=== PATIENT | female | born 1970 | race Native Hawaiian/Other Pacific Islander ===

== ENCOUNTER 2016-10-14 19:19 | Observation (INO) | payer MEDICAID ==
[2016-10-14] MEDS ORDERED: Sodium Chloride 0.9% 1,000 ML IV ONE (19:44)
[2016-10-14] MEDS ORDERED: Sodium Chloride 0.9% 1,000 ML ONE (19:59)
[2016-10-14 20:07] LABS: BASO # 0.1 K/uL (0.0-0.2); BASO % 1.1 % (0.0-2.0); EOS # 0.3 K/uL (0.0-0.7); EOS % 4.1 % (0.0-4.0); HEMATOCRIT 39.8 % (34.0-47.0); LYMPH # 2.1 K/uL (1.0-4.3); LYMPH % 30.4 % (20.0-40.0); MEAN CORPUSCULAR HEMOGLOBIN 27.2 pg (27.0-31.0); MEAN CORPUSCULAR HGB CONC 34.4 g/dL (33.0-37.0); MEAN PLATELET VOLUME 7.4 fL (7.2-11.7); MONO # 0.6 K/uL (0.0-0.8); MONO % 8.1 % (0.0-10.0); NRBC % 0.2 % (0.0-2.0); RED CELL DISTRIBUTION WIDTH 14.9 % (11.5-14.5); WHITE BLOOD COUNT 6.9 K/uL (4.8-10.8)
--- NOTE | 2016-10-14 20:16 | C.PDOC ---
History Of Present Illness 46 y/o female complaining of dizziness for the past 2-3 hours associated with 3- 4 episodes of vomiting today. Denies chest pain, shortness of breath, and abdominal pain. She states having similar symptoms in the past and saw an ENT who did a procedure in the office where she felt better afterward. No change in vision. No further medical complaints. PMD: Jessica Connors Time Seen by Provider: 10/14/16 19:35 Chief Complaint (Nursing): Dizziness/Lightheaded History Per: Patient History/Exam Limitations: no limitations Onset/Duration Of Symptoms: Hrs (2-3 hours ago) Current Symptoms Are (Timing): Still Present Past Medical History Reviewed: Historical Data, Nursing Documentation, Vital Signs Vital Signs: Last Vital Signs Temp 97.6 F 10/15/16 00:46 Pulse 65 10/15/16 00:46 Resp 20 10/15/16 01:02 BP 109/76 10/15/16 00:46 Pulse Ox 98 10/14/16 22:17 Family History: States: No Known Family Hx - Social History Hx Alcohol Use: No Hx Substance Use: No Review Of Systems Except As Marked, All Systems Reviewed And Found Negative. Eyes: Negative for: Vision Change Cardiovascular: Negative for: Chest Pain Respiratory: Negative for: Shortness of Breath Gastrointestinal: Positive for: Vomiting. Negative for: Abdominal Pain Neurological: Positive for: Dizziness Physical Exam - Physical Exam Appears: Well, Non-toxic, No Acute Distress Skin: Normal Color, Warm, Dry Head: Atraumatic, Normacephalic Eye(s): bilateral: Normal Inspection, PERRL, EOMI Oral Mucosa: Moist Neck: Normal, Normal ROM, Supple Chest: Symmetrical Cardiovascular: Rhythm Regular, No Murmur Respiratory: Normal Breath Sounds, No Accessory Muscle Use Gastrointestinal/Abdominal: Normal Exam, Bowel Sounds, Soft, No Tenderness Back: Normal Inspection, No Vertebral Tenderness Extremity: Bilateral: Atraumatic, Normal Color And Temperature, Normal ROM Neurological/Psych: Oriented x3, Normal Speech, Normal Motor, Normal Sensation Gait: Steady ED Course And Treatment - Laboratory Results Result Diagrams: 10/14/16 20:01 10/14/16 20:01 O2 Sat by Pulse Oximetry: 98 (RA) Pulse Ox Interpretation: Normal - CT Scan/US CT Head Without Intravenous Contrast Other Rad Studies (CT/US): Read By Radiologist, Radiology Report Reviewed CT/US Interpretation: FINDINGS: Brain: No hemorrhage. No significant white matter disease. No edema. Appearance of partially. empty sella. Ventricles: No hydrocephalus. Bones: Skull is intact. Sinuses: No acute sinusitis. Mastoid air cells: No mastoid effusion. IMPRESSION: No CT evidence of acute intracranial abnormality. Appearance of partially empty sella. Correlate clinically. Followup as warranted. Medical Decision Making Medical Decision Making: Time: 19:36 Plan: --CMP --Lipase --CBC --POC urine --sodium chloride IV 1000 ml at 250 mls/hr --Pepcid 20 mg IV --Antivert 25 mg PO --Reglan 10 mg IV --Reevaluation and disposition Disposition - Disposition Disposition: HOSPITALIZED Disposition Time: 22:20 Condition: STABLE - Clinical Impression Clinical Impression: Vertigo, Vomiting - Scribe Statement The provider has reviewed the documentation as recorded by the Charisse Garcia All medical record entries made by the Yadiibe were at my direction and personally dictated by me. I have reviewed the chart and agree that the record accurately reflects my personal performance of the history, physical exam, medical decision making, and the department course for this patient. I have also personally directed, reviewed, and agree with the discharge instructions and disposition.
[2016-10-14 20:17] LABS: CHLORIDE 101 mmol/L (98-107); POTASSIUM 4.4 mmol/L (3.6-5.2); SODIUM 141 mmol/L (132-148)
[2016-10-14 20:19] LABS: GFR AFRICAN-AMERICAN > 60
[2016-10-14 20:20] LABS: ALB/GLOB RATIO 1.4 (1.0-2.1); ALKALINE PHOSPHATASE 89 U/L (38-126); ALT/SGPT 34 U/L (9-52); AST/SGOT 20 U/L (14-36); BILIRUBIN,TOTAL 0.6 mg/dL (0.2-1.3); BLOOD UREA NITROGEN 17 mg/dL (7-17); CALCIUM 9.2 mg/dl (8.6-10.4); CARBON DIOXIDE 26 mmol/L (22-30); GLUCOSE,RANDOM 96 mg/dL (65-105); TOTAL PROTEIN 6.8 g/dL (6.3-8.3)
--- NOTE | 2016-10-14 22:08 | CT ---
EXAM: CT Head Without Intravenous Contrast CLINICAL HISTORY: 46 years old, female; Pain; Headache; Additional info: R/O ich TECHNIQUE: Axial computed tomography images of the head/brain without intravenous contrast. All CT scans at this facility use one or more dose reduction techniques, viz.: automated exposure control; ma/kV adjustment per patient size (including targeted exams where dose is matched to indication; i.e. head); or iterative reconstruction technique. Coronal and sagittal reformatted images were created and reviewed. COMPARISON: No relevant prior studies available. FINDINGS: Brain: No hemorrhage. No significant white matter disease. No edema. Appearance of partially empty sella. Ventricles: No hydrocephalus. Bones: Skull is intact. Sinuses: No acute sinusitis. Mastoid air cells: No mastoid effusion. IMPRESSION: No CT evidence of acute intracranial abnormality. Appearance of partially empty sella. Correlate clinically. Followup as warranted.
[2016-10-15 07:46] LABS: HEMATOCRIT 41.5 % (34.0-47.0); MEAN CELL VOLUME 79.6 fL (81.0-99.0); MEAN CORPUSCULAR HEMOGLOBIN 26.6 pg (27.0-31.0); MEAN CORPUSCULAR HGB CONC 33.4 g/dL (33.0-37.0); MEAN PLATELET VOLUME 7.8 fL (7.2-11.7); RED CELL DISTRIBUTION WIDTH 14.4 % (11.5-14.5); WHITE BLOOD COUNT 6.7 K/uL (4.8-10.8)
[2016-10-15 07:58] LABS: CHLORIDE 103 mmol/L (98-107); SODIUM 137 mmol/L (132-148)
[2016-10-15 07:59] LABS: POTASSIUM 3.8 mmol/L (3.6-5.2)
[2016-10-15 08:01] LABS: CARBON DIOXIDE 25 mmol/L (22-30); GFR AFRICAN-AMERICAN > 60
[2016-10-15 08:02] LABS: BLOOD UREA NITROGEN 12 mg/dL (7-17); CALCIUM 8.8 mg/dl (8.6-10.4); GLUCOSE,RANDOM 89 mg/dL (65-105)
--- NOTE | 2016-10-15 23:47 | CP.PCM.HP ---
History of Present Illness - History of Present Illness History of Present Illness: 46 WITH H/O BPV IN THE PAST, SHE HAS NAUSEA, WEAKNESS DIZZINESS, WHICH SHE DESCRIBES VERTO, NO CHEST PAIN, NO SEIZURE, NO LOC Present on Admission - Present on Admission Any Indicators Present on Admission: No History of DVT/PE: No History of Uncontrolled Diabetes: No Urinary Catheter: No Decubitus Ulcer Present: No Review of Systems - Constitutional Constitutional: Anorexia, Headache - EENT Nose/Mouth/Throat: Nasal Congestion - Gastrointestinal Gastrointestinal: Nausea, Vomiting - Musculoskeletal Musculoskeletal: Arthralgias - Neurological Neurological: Dizziness Past Patient History - Past Medical History & Family History Past Medical History?: Yes - Past Social History Smoking Status: Never Smoked - CARDIAC Hx Cardiac Disorders: No - PULMONARY Hx Respiratory Disorders: No - NEUROLOGICAL Hx Neurological Disorder: Yes Hx Dizziness: Yes - HEENT Hx HEENT Problems: No - RENAL Hx Chronic Kidney Disease: No - ENDOCRINE/METABOLIC Hx Endocrine Disorders: No - HEMATOLOGICAL/ONCOLOGICAL Hx Blood Disorders: No - INTEGUMENTARY Hx Dermatological Problems: No - MUSCULOSKELETAL/RHEUMATOLOGICAL Hx Musculoskeletal Disorders: No Hx Falls: No - GASTROINTESTINAL Hx Vomiting: Yes - GENITOURINARY/GYNECOLOGICAL Hx Genitourinary Disorders: No - PSYCHIATRIC Hx Substance Use: No - SURGICAL HISTORY Hx Surgeries: Yes Other/Comment: dental procedure - ANESTHESIA Hx Anesthesia: Yes Hx Anesthesia Reactions: No Meds Allergies/Adverse Reactions: Allergies Allergy/AdvReac Type Severity Reaction Status Date / Time No Known Allergies Allergy Verified 10/14/16 19:27 Physical Exam - Head Exam Head Exam: ATRAUMATIC, NORMAL INSPECTION, NORMOCEPHALIC - Eye Exam Eye Exam: EOMI, Normal appearance, PERRL - ENT Exam ENT Exam: Mucous Membranes Moist, Normal Exam, Normal Oropharynx - Neck Exam Neck exam: Positive for: Normal Inspection - Respiratory Exam Respiratory Exam: Clear to Auscultation Bilateral, NORMAL BREATHING PATTERN - Cardiovascular Exam Cardiovascular Exam: REGULAR RHYTHM, +S1, +S2 - GI/Abdominal Exam GI & Abdominal Exam: Normal Bowel Sounds - Rectal Exam Rectal Exam: NORMAL INSPECTION - Neurological Exam Neurological exam: Alert, CN II-XII Intact, Normal Gait, Oriented x3, Reflexes Normal - Psychiatric Exam Psychiatric exam: Normal Mood - Skin Skin Exam: Dry, Normal Color Results - Vital Signs Recent Vital Signs: Last Vital Signs Temp 98 F 10/15/16 16:00 Pulse 20 L 10/15/16 16:00 Resp 20 10/15/16 16:00 BP 103/69 10/15/16 16:00 Pulse Ox 96 10/15/16 16:00 - Labs Result Diagrams: 10/15/16 07:28 10/15/16 07:28 Labs: Laboratory Results - last 24 hr 10/15/16 10/15/16 07:28 07:28 WBC 6.7 RBC 5.21 H Hgb 13.9 Hct 41.5 MCV 79.6 L MCH 26.6 L MCHC 33.4 RDW 14.4 Plt Count 266 MPV 7.8 Sodium 137 Potassium 3.8 Chloride 103 Carbon Dioxide 25 Anion Gap 13 BUN 12 Creatinine 0.7 Est GFR ( Amer) > 60 Est GFR (Non-Af Amer) > 60 Random Glucose 89 Calcium 8.8 Assessment & Plan (1) Vertigo Status: Acute
[2016-10-16 08:36] VITALS: RESP 20
[2016-10-16] MEDS ORDERED: Gadodiamide 287 MG/ML VIAL (15ML) IV ONE (11:29)
--- NOTE | 2016-10-16 12:26 | MRI ---
PROCEDURE: MRI BRAIN WITH AND WITHOUT CONTRAST HISTORY: Dizziness COMPARISON: Comparison made with CT brain 10/14/2016 TECHNIQUE: Multiplanar, multisequence MR images of the brain were obtained with and without intravenous contrast enhancement. Approximately 15 cc of Omniscan contrast material injected for this procedure FINDINGS: HEMORRHAGE: No acute parenchymal, subarachnoid nor extra-axial hemorrhage. . No evidence of hemosiderin deposition identified on gradient echo weighted sequence. DWI: No evidence of an acute or early subacute infarction seen on diffusion imaging. . BRAIN PARENCHYMA: No mass,mass effect or edema. No atrophy or chronic microvascular ischemic changes. Ventricular and sulcal size are within range of normal for this patient's stated age Partially empty sella. ENHANCEMENT: No enhancing parenchymal nor extra-axial masses or collections. No evidence of unusual meningeal enhancement. . . . Pulsation artifact felt be present within the posterior fossa as well as extending superiorly into the posterior temporoparietal watershed zones. VENTRICLES: No obstructive hydrocephalus CRANIUM: Calvarium appears grossly unremarkable. ORBITS: Grossly unremarkable. PARANASAL SINUSES/MASTOIDS: Minimal mucosal thickening seen within a few ethmoid air cells. VASCULAR SYSTEM: The visualized major vascular flow voids at skull base patent. OTHER FINDINGS: None . IMPRESSION: No evidence of acute intracranial hemorrhage or infarct. No enhancing lesions seen. Apparent pulsation type artifact within the posterior fossa and posterior temporoparietal watershed zones protocol of evelio
[2016-10-16 17:20] VITALS: BP 125/80; PULSE 81; TEMP 97.4; O2SAT 100
[2016-10-16] MEDS ORDERED: Pneumococcal 23-Valent Vaccine IM ONE (17:30)
--- NOTE | 2016-10-16 19:35 | CP.PCM.DIS ---
Provider - Provider Date of Admission: 10/14/16 22:31 Attending physician: Cory Rangel MD Diagnosis - Discharge Diagnosis (1) Vertigo Status: Acute Hospital Course - Lab Results Lab Results: Most Recent Lab Values WBC 6.7 K/uL (4.8-10.8) 10/15/16 07: RBC 5.21 Mil/uL (3.80-5.20) H 10/15/16 07:28 Hgb 13.9 g/dL (11.0-16.0) 10/15/16 07: Hct 41.5 % (34.0-47.0) 10/15/16 07: MCV 79.6 fL (81.0-99.0) L 10/15/16 07: MCH 26.6 pg (27.0-31.0) L 10/15/16 07: MCHC 33.4 g/dL (33.0-37.0) 10/15/16 07: RDW 14.4 % (11.5-14.5) 10/15/16 07: Plt Count 266 K/uL (130-400) 10/15/16 07:28 MPV 7.8 fL (7.2-11.7) 10/15/16 07: Neut % (Auto) 56.3 % (50.0-75.0) 10/14/16 20:01 Lymph % (Auto) 30.4 % (20.0-40.0) 10/14/16 20:01 [place] % (Auto) 8.1 % (0.0-10.0) 10/14/16 20:01 Eos % (Auto) 4.1 % (0.0-4.0) H 10/14/16 20:01 Baso % (Auto) 1.1 % (0.0-2.0) 10/14/16 20:01 Neut # 3.9 K/uL (1.8-7.0) 10/14/16 20:01 Lymph # 2.1 K/uL (1.0-4.3) 10/14/16 20:01 [place] # 0.6 K/uL (0.0-0.8) 10/14/16 20:01 Eos # 0.3 K/uL (0.0-0.7) 10/14/16 20:01 Baso # 0.1 K/uL (0.0-0.2) 10/14/16 20:01 Sodium 137 mmol/L (132-148) 10/15/16 07:28 Potassium 3.8 mmol/L (3.6-5.2) 10/15/16 07:28 Chloride 103 mmol/L (98-107) 10/15/16 07:28 Carbon Dioxide 25 mmol/L (22-30) 10/15/16 07:28 Anion Gap 13 (10-20) 10/15/16 07:28 BUN 12 mg/dL (7-17) 10/15/16 07:28 Creatinine 0.7 MG/DL (0.7-1.2) 10/15/16 07:28 Est GFR ( Amer) > 60 10/15/16 07:28 Est GFR (Non-Af Amer) > 60 10/15/16 07:28 Random Glucose 89 mg/dL (65-105) 10/15/16 07:28 Calcium 8.8 mg/dl (8.6-10.4) 10/15/16 07:28 Total Bilirubin 0.6 mg/dL (0.2-1.3) 10/14/16 20:01 AST 20 U/L (14-36) 10/14/16 20:01 ALT 34 U/L (9-52) 10/14/16 20:01 Alkaline Phosphatase 89 U/L (38-126) 10/14/16 20:01 Total Protein 6.8 g/dL (6.3-8.3) 10/14/16 20:01 Albumin 3.9 g/dL (3.5-5.0) 10/14/16 20:01 Globulin 2.9 gm/dL (2.2-3.9) 10/14/16 20:01 Albumin/Globulin Ratio 1.4 (1.0-2.1) 10/14/16 20:01 Lipase 104 U/L (23-300) 10/14/16 20:01 Urine HCG, Qual Negative (NEGATIVE) 10/16/16 08:09 - Hospital Course Hospital Course: ADMITTED WITH DIZZINESS AND SHE HAD MRI -. NO SOB AND MRI NEGATIVE Discharge Exam - Head Exam Head Exam: ATRAUMATIC, NORMAL INSPECTION, NORMOCEPHALIC - Eye Exam Eye Exam: EOMI, Normal appearance, PERRL Pupil Exam: NORMAL ACCOMODATION - ENT Exam ENT Exam: Mucous Membranes Moist, Normal Exam, Normal Oropharynx, TM's Normal Bilaterally - Neck Exam Neck exam: Normal Inspection - Respiratory Exam Respiratory Exam: NORMAL BREATHING PATTERN - Cardiovascular Exam Cardiovascular Exam: REGULAR RHYTHM, +S1, +S2 - GI/Abdominal Exam GI & Abdominal Exam: Normal Bowel Sounds - Rectal Exam Rectal Exam: NORMAL INSPECTION - Neurological Exam Neurological exam: Alert, CN II-XII Intact, Normal Gait, Oriented x3, Reflexes Normal - Psychiatric Exam Psychiatric exam: Normal Mood - Skin Skin Exam: Intact Discharge Plan - Follow Up Plan Condition: STABLE Disposition: HOME/ ROUTINE Instructions: Meclizine (By mouth), Vertigo (DC), Dizziness (GEN) Referrals: Jessica Connors MD [Staff Provider] - Cory Rangel MD [Staff Provider] -
== END 2016-10-16 18:11 | disposition home or self-care (01) ==
LOC: C.ER 19:19 → C.9E 22:31 → C.3T 22:31
PROVIDERS: ADMIT Internal Medicine; ATTEND Internal Medicine
DX: R42 Dizziness and giddiness (principal); R11.2 Nausea with vomiting, unspecified
CPT/HCPCS: 36415; 70450; 70553; 80048; 80053; 83690; 84703; 85025; 85027; 96374; 97116; 97161; 99285; G0378; G8978; G8979; J1644; J2060; J2405; J2765; J7040